=== PATIENT | female | born 1960 | race Caucasian/White ===

== ENCOUNTER 2024-07-07 08:31 | Day surgery (SDC) | payer OTHER ==
[~2024-07-07] VITALS: Ht 162.6 cm; Wt 64.7 kg
[~2024-07-07 08:31] MED LIST: Balanced Salt Epinephrine Irrigation Solution 500 mL IR SCH; Diazepam 5 MG Tab PO PRN; Diazepam 5 MG Tab PO SCH; Lidocaine HCl/Pf 1% 5 ML VIAL XX SCH; Moxifloxacin HCL 0.5 MG/0.1 ML 0.4MLSYR RIGHTEYE SCH; Ondansetron 4 MG SoluTab MM PRN; PHENYLEPHRINE\\TROPICAMIDE\\TETRACAINE OPHTHALMIC DILATING SOLN RIGHTEYE PRN; Povidone-Iodine 450 DROP/30 ML Solution ONE; Povidone-Iodine 450 DROP/30 ML Solution RIGHTEYE SCH; Tetracaine HCl/Pf 0.5% Opth Soln 4 ml ONE; Triamcinolone Inj Susp 40 MG / ML 1ML Vial INJ SCH; Triamcinolone Inj Susp 40 MG / ML 1ML Vial ONE
[2024-07-07] MEDS ORDERED: Diazepam 10 MG Tab ONE (08:57)
[2024-07-07] MEDS ORDERED: Aspir 8181 MG (09:11)
[2024-07-07] MEDS ORDERED: ATOR20 (09:11)
[2024-07-07] MEDS ORDERED: ALBU90OI (09:11)
[2024-07-07] MEDS ORDERED: Calcium Carbon500 MG (09:12)
[2024-07-07] MEDS ORDERED: B-12500 MCG (09:13)
[2024-07-07] MEDS ORDERED: TIZA4 (09:13)
[2024-07-07] MEDS ORDERED: LOSA50 (09:13)
[2024-07-07] MEDS ORDERED: METF500 (09:13)
--- NOTE | 2024-07-07 09:21 | NUR ---
07/07/24 0921 Erika Del Toro PT ANXIETY LEVEL IS A 3/10. PT HAS CALL LIGHT IN HAND AND HAS PULSE OX MONITOR IN ON.
--- NOTE | 2024-07-07 09:56 | NUR ---
07/07/24 0956 Devora Almaraz BP 183/82, HR 75, O2 100% W/BLOW BY AT 10L.
[2024-07-07 10:18] VITALS: BP 155/84
== END 2024-07-07 10:15 | disposition home or self-care (01) ==
LOC: ORSCSDS 08:31
PROVIDERS: Ophthalmology
PROC: 08RJ3JZ Replacement of Right Lens with Synthetic Substitute, Percutaneous Approach (ICD-10-PCS; principal; 2024-07-07 10:00)
DX: E11.36 Type 2 diabetes mellitus with diabetic cataract (principal); H25.813 Combined forms of age-related cataract, bilateral; F17.210 Nicotine dependence, cigarettes, uncomplicated; I10 Essential (primary) hypertension; E78.00 Pure hypercholesterolemia, unspecified; Z79.84 Long term (current) use of oral hypoglycemic drugs; Z79.82 Long term (current) use of aspirin; Z79.899 Other long term (current) drug therapy
CPT/HCPCS: 82947; A9270; J3301; V2632

== ENCOUNTER 2024-07-14 06:23 | Day surgery (SDC) | payer OTHER ==
[~2024-07-14] VITALS: Ht 162.6 cm; Wt 63.9 kg
[~2024-07-14 06:23] MED LIST changes: +ALBU90OI; +ATOR20; +Aspir 8181 MG; +B-12500 MCG; +Calcium Carbon500 MG; +LOSA50; +METF500; +TIZA4; -Triamcinolone Inj Susp 40 MG / ML 1ML Vial ONE
[2024-07-14] MEDS ORDERED: Diazepam 10 MG Tab ONE (06:36)
[2024-07-14] MEDS ORDERED: Triamcinolone Inj Susp 40 MG / ML 1ML Vial ONE (06:39)
--- NOTE | 2024-07-14 07:01 | NUR ---
07/14/24 0701 Erika Del Toro PT STATES ANXIETY LEVEL BEFORE PO VALIUM 10MG IS 0/10. PT IS ON CONTINUOUS PULSE OX MONITORING. CALL LIGHT IN HAND.
--- NOTE | 2024-07-14 07:56 | NUR ---
07/14/24 0756 Rosa Maria Eason 0754 BP 177/79, HR 77, O2 AT 97% ROOM AIR, RESP 16
[2024-07-14 08:30] VITALS: BP 183/84
== END 2024-07-14 08:22 | disposition home or self-care (01) ==
LOC: ORSCSDS 06:23
PROVIDERS: Ophthalmology
PROC: 08RK3JZ Replacement of Left Lens with Synthetic Substitute, Percutaneous Approach (ICD-10-PCS; principal; 2024-07-14 08:00)
DX: E11.36 Type 2 diabetes mellitus with diabetic cataract (principal); H25.812 Combined forms of age-related cataract, left eye; Z96.1 Presence of intraocular lens; I10 Essential (primary) hypertension; E78.00 Pure hypercholesterolemia, unspecified; J45.909 Unspecified asthma, uncomplicated; F17.210 Nicotine dependence, cigarettes, uncomplicated; Z79.82 Long term (current) use of aspirin; Z79.84 Long term (current) use of oral hypoglycemic drugs; Z79.899 Other long term (current) drug therapy
CPT/HCPCS: A9270; J3301; V2632